=== PATIENT | male | born 1965 | race Caucasian/White ===

== ENCOUNTER 2016-11-14 08:27 | Inpatient (IN) | payer OTHER ==
[~2016-11-14] VITALS: Ht 172.7 cm; Wt 87.2 kg
[~2016-11-14 08:27] MED LIST: Ascorbic Acid,Ester- PO; BENTYL10 MG PO; CARTIA XT180 MG PO; CELEBREX200 MG PO; CIPRO500 MG PO; COUMADIN,JANTO1.5 MG PO; COUMADIN2 MG PO; COUMADIN3 MG PO; ENDOCET 5-3251 EACH PO; FLAGYL500 MG PO; FLEXERIL10 MG PO; LIPITOR40 MG PO; NORCO 5/3251 TABLET PO; PREVACID30 MG PO; REQUIP0.25 MG PO; REQUIP1 MG PO; TOPROL XL25 MG PO; TRAMADOL HCL50 MG PO; TYLENOL REGULA325 MG PO; Toprol XL PO; Tums PO; VITAMIN D1000 INTUN PO; VOLTAREN 1% GE100 GM TP; ZOCOR40 MG PO; ZOFRAN ODT4 MG PO; ZOFRAN4 MG PO; Zocor PO
[2016-11-14 14:18] VITALS: BP 153/71
[2016-11-14 15:45] VITALS: BP 147/81
[2016-11-14 18:00] LABS: INTER. NORMALIZED RATIO 1.2
[2016-11-14 20:23] LABS: HEMATOCRIT 38.1 % (38.0-50.0); MCH 30.2 PG (29.0-34.0); MCHC 35.2 G/DL (30.0-36.0); MCV 85.8 FL (86-99); MEAN PLAT.VOLUME 11.1 uM^3 (9.0-12.4); PLATELET COUNT 223 K/uL (156-360); RBC DIS.WIDTH-CV 13.7 % (11.8-14.6); RBC DIS.WIDTH-SD 42.6 % (39-53); RED BLOOD COUNT 4.44 M/uL (4.00-5.50); WHITE BLOOD COUNT 6.1 K/uL (4.1-10.2)
[2016-11-14 22:22] VITALS: BP 133/70
[2016-11-14 23:42] VITALS: BP 138/68
[2016-11-15 04:20] VITALS: BP 129/67
[2016-11-15 07:48] VITALS: BP 131/74
[2016-11-15 11:02] VITALS: BP 140/71
[2016-11-15 15:20] VITALS: BP 139/61
[2016-11-15 19:57] VITALS: BP 122/72
[2016-11-16 00:35] VITALS: BP 124/67
[2016-11-16 04:18] VITALS: BP 126/74
[2016-11-16 05:48] LABS: HEMATOCRIT 43.8 % (38.0-50.0); MCH 28.2 PG (29.0-34.0); MCHC 33.1 G/DL (30.0-36.0); MCV 85.2 FL (86-99); MEAN PLAT.VOLUME 10.5 uM^3 (9.0-12.4); PLATELET COUNT 231 K/uL (156-360); RBC DIS.WIDTH-CV 13.7 % (11.8-14.6); RBC DIS.WIDTH-SD 42.3 % (39-53); RED BLOOD COUNT 5.14 M/uL (4.00-5.50); WHITE BLOOD COUNT 6.3 K/uL (4.1-10.2)
[2016-11-16 06:59] LABS: INTER. NORMALIZED RATIO 1.1; PROTHROMBIN TIME 11.7 (9.2-11.2); PTT 66.1 (25-32)
[2016-11-16 08:30] VITALS: BP 119/70
[2016-11-16 11:30] VITALS: BP 155/86
[2016-11-16 16:40] VITALS: BP 121/83
[2016-11-16 20:02] VITALS: BP 106/64
[2016-11-17] VITALS: BP 98/59
[2016-11-17 03:47] LABS: INTER. NORMALIZED RATIO 1.1; PROTHROMBIN TIME 11.2 (9.2-11.2)
[2016-11-17 04:35] VITALS: BP 110/63
[2016-11-17 08:17] VITALS: BP 115/61
[2016-11-17 16:07] VITALS: BP 129/71
[2016-11-17 23:24] VITALS: BP 111/61
[2016-11-18 04:44] LABS: EOSINOPHIL (%) 1.7 % (0-5); EOSINOPHIL COUNT 0.1 K/uL (0-0.3); HEMATOCRIT 39.6 % (38.0-50.0); LYMPHOCYTE COUNT 1.9 K/uL (1.0-2.8); MCH 29.7 PG (29.0-34.0); MCHC 35.4 G/DL (30.0-36.0); MCV 83.9 FL (86-99); MEAN PLAT.VOLUME 10.7 uM^3 (9.0-12.4); MONOCYTE (%) 11.7 % (3-12); MONOCYTE COUNT 0.7 K/uL (0-0.8); NEUTROPHIL (%) 54.3 % (45-76); NEUTROPHIL COUNT 3.3 K/uL (1.8-6.4); PLATELET COUNT 206 K/uL (156-360); RBC DIS.WIDTH-CV 13.9 % (11.8-14.6); RBC DIS.WIDTH-SD 41.9 % (39-53); RED BLOOD COUNT 4.72 M/uL (4.00-5.50); WHITE BLOOD COUNT 6.1 K/uL (4.1-10.2)
[2016-11-18 04:52] LABS: INTER. NORMALIZED RATIO 1.5; PROTHROMBIN TIME 15.3 (9.2-11.2)
[2016-11-18 04:53] LABS: CHLORIDE 105 mEq/L (99-109); POTASSIUM 4.3 mEq/L (3.7-5.4); SODIUM 139 mEq/L (136-147)
[2016-11-18 04:54] LABS: MAGNESIUM 1.9 mg/dL (1.3-2.7)
[2016-11-18 04:55] LABS: GLUCOSE 108 mg/dL (70-99)
[2016-11-18 04:57] LABS: ANION GAP 8 MEQ/L (2-14)
[2016-11-18 04:59] LABS: GFR ESTIMATE (CALCULATED) > 59 mL/min/
[2016-11-18 05:00] LABS: UREA NITROGEN (BUN) 15 mg/dL (9-23)
[2016-11-18 05:13] LABS: PTT 74.2 (25-32)
[2016-11-18 08:18] VITALS: BP 128/69
[2016-11-18] MEDS ORDERED: ENDOCET 5-3251 EACH PO (09:45)
[2016-11-18] MEDS ORDERED: TYLENOL REGULA325 MG PO (09:45)
[2016-11-18] MEDS ORDERED: PROMETHAZINE HC25 M1 PO (09:45)
[2016-11-18 11:56] VITALS: BP 125/70
[2016-11-18 21:26] VITALS: BP 121/67
[2016-11-18 23:47] VITALS: BP 126/69
[2016-11-19 06:12] LABS: PROTHROMBIN TIME 21.1 (9.2-11.2); PTT 67.8 (25-32)
[2016-11-19 08:30] VITALS: BP 157/71
[2016-11-19 11:30] VITALS: BP 153/80
[2016-11-19 15:10] VITALS: BP 125/68
[2016-11-20 00:12] VITALS: BP 127/73
[2016-11-20 08:30] VITALS: BP 140/82
[2016-11-20 09:12] LABS: INTER. NORMALIZED RATIO 2.3; PROTHROMBIN TIME 23.6 (9.2-11.2); PTT 49.2 (25-32)
[2016-11-20 16:30] VITALS: BP 161/74
[2016-11-20 23:47] VITALS: BP 107/55
[2016-11-21 05:11] LABS: INTER. NORMALIZED RATIO 2.2; PROTHROMBIN TIME 23.3 (9.2-11.2); PTT 57.1 (25-32)
[2016-11-21 07:47] VITALS: BP 121/74
== END 2016-11-21 12:01 | disposition home or self-care (01) | DRG 502 ==
LOC: 2SOUTH 08:27 → SDC 09:57 → EDSTATUS 09:57 → 2SOUTH 09:59 → 3EAST 13:59 → 2SOUTH 14:28 → 3EAST 11-21 12:01
PROVIDERS: Internal Medicine; Internal Medicine Cardiovascular Disease; Orthopaedic Surgery Hand Surgery
PROC: 0MB64ZZ Excision of Left Wrist Bursa and Ligament, Percutaneous Endoscopic Approach (ICD-10-PCS; principal; 2016-11-16)
PROC: 0LN63ZZ Release Left Lower Arm and Wrist Tendon, Percutaneous Approach (ICD-10-PCS; principal; 2016-11-16)
DX: M65.4 Radial styloid tenosynovitis [de Quervain] (principal); S63.522A Sprain of radiocarpal joint of left wrist, initial encounter; Z51.81 Encounter for therapeutic drug level monitoring; Z79.01 Long term (current) use of anticoagulants; W31.89XA Contact with other specified machinery, initial encounter; Z95.2 Presence of prosthetic heart valve; I11.9 Hypertensive heart disease without heart failure; F41.9 Anxiety disorder, unspecified; K21.9 Gastro-esophageal reflux disease without esophagitis; E78.5 Hyperlipidemia, unspecified; E66.9 Obesity, unspecified; I25.10 Atherosclerotic heart disease of native coronary artery without angina pectoris; Z68.29 Body mass index [BMI] 29.0-29.9, adult; Y93.89 Activity, other specified; Z87.891 Personal history of nicotine dependence; I35.0 Nonrheumatic aortic (valve) stenosis; J45.909 Unspecified asthma, uncomplicated
CPT/HCPCS: 80048; 82272; 83735; 85025; 85027; 85610; 85730; J0131; J0690; J1100; J2250; J2405; J3010; J7120; Q0169; S0020

== ENCOUNTER 2017-08-16 07:33 | Emergency (ER) | payer BC ==
[~2017-08-16] VITALS: Ht 172.7 cm; Wt 84.5 kg
[~2017-08-16 07:33] MED LIST changes: +PROMETHAZINE HC25 M1 PO
[2017-08-16] MEDS ORDERED: TRAMADOL HCL50 MG PO (10:09)
[2017-08-16] MEDS ORDERED: CELEBREX200 MG PO (10:10)
[2017-08-16] MEDS ORDERED: ZOFRAN4 MG PO (12:31)
[2017-08-16] MEDS ORDERED: CLEOCIN300 MG PO (12:31)
[2017-08-16 12:43] VITALS: BP 136/74
== END 2017-08-16 12:44 | disposition home or self-care (01) ==
LOC: EME 07:33
DX: L03.011 Cellulitis of right finger (principal); Z79.01 Long term (current) use of anticoagulants; Z95.2 Presence of prosthetic heart valve; Z88.5 Allergy status to narcotic agent; Z88.0 Allergy status to penicillin
CPT/HCPCS: 73130; 99281; 99284